=== PATIENT | female | born 1955 | race Caucasian/White ===

== ENCOUNTER 2017-09-19 09:41 | Outpatient (RCR) | payer OTHER ==
[2017-09-18 09:51] VITALS: BP 137/94
[2017-09-18 09:55] LABS: PLATELET COUNT, AUTOMATED 356 K/uL (150-450)
[~2017-09-19] VITALS: Ht 162.6 cm; Wt 75.5 kg
[~2017-09-19 09:41] MED LIST: ASPI-1471 PO; CHOL10005 PO; EPIN0.3P15 IM; ESTE625 PO; TRAM-420 PO; ULT PO
[2017-09-19 09:55] VITALS: BP 125/82
--- NOTE | 2017-09-19 10:38 | ONC Progress Note - NP.Halsey ---
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 Patient had a CBC drawn today which was reviewed. With the patient's last office visit she was noted to have tenderness on her left neck and was found to have an abscessed tooth. Patient previously was experiencing drenching night sweats. Today she reports that these of completely resolved. She denies any hot flashes. She has no other B symptoms such as a rash or lymphadenopathy. Labs reviewed today are centrally within normal limits. Patient has recently followed with primary care for upper respiratory infection. She reports that all family members experienced flulike symptoms followed by upper respiratory symptoms. She has been treated with antibiotics and feels that her symptoms have 90% resolved. She continues to have sinus drainage and occasional cough which is cause some discomfort in the chest. She denies any shortness of breath or difficulty breathing. She denies any sinus pain or pressure today. Patient has no concerns. Problem List (1) Atypical lymphocytosis Oncology History Patient is a post menopausal female who was followed by Dr. Garrett. She was found to have an abnormal CBC with a concern about the appearance of nucleated RBCs in her peripheral blood. Her CBC on August 24, 2015 did reveal white count of 4.9, hemoglobin 15, hematocrit 44.5, platelets 278,000. Her differential showed 26% atypical lymphocytes. In addition she presented with complaint of drenching night sweats, but no other B symptoms. CBC on August showed white count 4.2, hemoglobin 14.5, hematocrit 43.5, platelets 276, 000. Absolute neutrophil count was 2.2 and absolute lymphocytic count was 1.6. Flow cytometry of the peripheral blood came back negative for acute leukemia or any evidence of monoclonality or lymphoproliferative disorder, but it showed rare CD8 positive LGL T-cells (6% of the total leukocytes and 21% of the T-cells ). The patient had bone marrow aspiration biopsy done on October 28, 2015 which showed mildly hypocellular bone marrow for age, 15%, with trilineage hematopoiesis with mild osteoporosis. No evidence of lymphoma. Flow cytometry showed polyclonal T and B cell population with no evidence of malignant lymphoma. Repeat flow cytometry on February 28, 2016 did reveal small population of large granular lymphocyte-like CD8 positive T-cells with variable CD5 expression, representing approximately 6% of the leukocytes without flow cytometric evidence of acute leukemia or B cell lymphoproliferative disorder. It seemed that that clone is stable at 6%. CBC from 04-13-16 showed a white count of 3.9 but a differential was not completed. Patient did not want to repeat labs until scheduled unless her symptoms increase. She has some anxiety regarding the ongoing lymph nodes in her neck. Today on the right side and tender. Medical History Family History: FH: abdominal aortic aneurysm repair MOTHER, Age:82 FH: breast cancer PGM FH: depression MOTHER, Age:82 FH: hypothyroidism SISTER FH: thyroid disease MOTHER, Age:82 Stent FATHER, Age:83 Thrombocytosis SISTER Vascular disease MOTHER, Age:82 Psychosocial History Social History The patient is with no children. She is not currently employed. She never smoked. Denied any abuse of alcohol or drugs. Smoking History: No Smoking Status: Never Smoker Medications and Allergies Reported Medications Aspirin (ASPIR 81) 81 Mg Tablet.dr, 81 MG PO QDAY, TAB 03/15/17 Epinephrine (EPIPEN 2-RICHARD) 0.3 Mg/0.3 Ml Pen.injctr, 0.3 MG IM 08/21/14 Cholecalciferol (Vitamin D3) (VITAMIN D3) 1,000 Unit Tablet, 1 TAB PO QDAY 08/21/14 Allergies: Coded Allergies: Shellfish (Verified Allergy, Severe, HIVES, 11/24/15) aloe vera (Verified Allergy, Mild, 03/06/09) Uncoded Allergies: ALLEVE (Allergy, Mild, 03/06/09) CT DYE (Allergy, Mild, 03/06/09) Review of System/Physical Exam Review of Systems All Systems Reviewed/Normal: Yes, Except as Noted Respiratory: Positive for Cough HEENT: Nasal Discharge (ported to be clear) Physical Exam Vital Signs Temperature: 98.3 Pulse: 71 BP Systolic: 125 BP Diastolic: 82 Respiratory Rate: 16 O2 SAT: 96 O2 Delivery: Room Air Height (inches) 64.00 Weight lb: 168 Weight oz: 5.0 Weight Kg (Madhav): 76.35 Pain: 0 ECOG Score: 0 General: Stable, Well Developed, Well Nourished, Not In Acute Distress HEENT: No Trauma Neck: Supple Lungs: Clear to Auscultation Heart: Regular Rate, Regular Rhythm, No Gallops, No Murmurs Extremities: No Cyanosis, No Clubbing, No Edema Lymphadenopathy: No Cervical Psychiatric: Mood appears normal, Affect appears normal Skin: No Skin Rashes, No Bruising Diagnostic Studies Diagnostic Studies Laboratory Laboratory Tests 09/18/17 09:47 Laboratory Tests 09/18/17 09:47: White Blood Count 5.3, Red Blood Count 4.92, Hemoglobin 15.4, Hematocrit 45.0, Mean Corpuscular Volume 91.5, Mean Corpuscular Hemoglobin 31.3, Mean Corpuscular Hemoglobin Concent 34.2, Red Cell Distribution Width 14.6, Platelet Count 356, Mean Platelet Volume 7.4, Neutrophils (%) (Auto) 60.5, Lymphocytes (% ) (Auto) 28.7, Monocytes (%) (Auto) 7.9, Eosinophils (%) (Auto) 1.4, Basophils ( %) (Auto) 1.5, Nucleated RBC Relative Count (auto) 0.0, Neutrophils # (Auto) 3.2 , Lymphocytes # (Auto) 1.5, Monocytes # (Auto) 0.4, Eosinophils # (Auto) 0.1, Basophils # (Auto) 0.1, Nucleated RBC Absolute Count (auto) 0.00 Assessment and Plan Assessment & Plan 1. Atypical lymphocytosis associated with drenching night sweats initially. Patient did not have any evidence of lymphoproliferative disorder. Bone marrow aspiration biopsy done October 28, 2015 came back negative for lymphoproliferative disorder. There was polyclonal T and B cell population with no evidence of lymphoma by flow cytometry of the bone marrow. Her current CBC is very good now. Her white count total is 5.3. Previous labs have also been within normal limits. Patient denies any constitutional symptoms or B symptoms. Previous night sweats have completely resolved. She denies any hot flashes. She has had upper respiratory infection and has followed with primary care. She feels that this is resolving and she is almost back to baseline. Patient is compliant at following with primary care. At this time I believe that there is no reason to continue following with the patient. If she experiences abnormal labs drawn through primary care provider we are certainly happy to see her again. I would recommend repeating the CBC in 6 months. I personally spent a total of 20 minutes. Of that 20 minutes was counseling/ coordination of patient's care. See my note above for details. Copies to: JAMES GARRETT MD, NANCY J C PYTH[employer] DEVELOPER-BC, ONC Sep 19, 2017 10:38
== END 2017-09-26 09:01 | disposition home or self-care (01) ==
LOC: ONC 09:41
PROVIDERS: ATTEND Nurse Practitioner Family
DX: D72.820 Lymphocytosis (symptomatic) (principal); Z79.82 Long term (current) use of aspirin; Z79.899 Other long term (current) drug therapy; R05 Cough
CPT/HCPCS: 36415; 85025; 99212

== ENCOUNTER → 2017-10-22 | Outpatient (CLI) | payer OTHER | LOC: SPU 08:48 | PROVIDERS: ATTEND Emergency Medicine | DX: Z52.9 Donor of unspecified organ or tissue (principal) ==

== ENCOUNTER → 2018-03-28 | Outpatient (CLI) | payer OTHER ==
--- NOTE | 2018-04-01 08:30 | RADIOLOGY IMAGING REPORT ---
FACILITY: [facility] PATIENT NAME: ZACHARIAH MIRANDA : [id number] MR: [id number] V: [id number] EXAM DATE: [id number] ORDERING PHYSICIAN: JAMES GARRETT TECHNOLOGIST: Nohemi Horn PROCEDURE:BILATERAL DIGITAL SCREENING MAMMOGRAM WITH CAD ASSISTED INTERPRETATION & 3D TOMOSYNTHESIS COMPARISON:Prior mammograms 01/23/17 with priors to 09/14/2011. INDICATIONS:SCREENING FINDINGS: Breasts have mostly fatty parenchymal density. There are no mammographic findings concerning for malignancy. No significant change from priors. DIAGNOSTIC CATEGORY 1--NEGATIVE. RECOMMENDATIONS: ROUTINE MAMMOGRAM AND CLINICAL EVALUATION IN 1 YR. IMPRESSION: BIRADS 1: Negative. Dictated by: Bon Marley on 03/29/2018 at 10:11 Transcribed by: ÁNGELA on 03/29/2018 at 10:40 Approved by: Jose Francisco Jackson M.D. on 04/01/2018 at 8:29 [facility]
== END ==
LOC: MAMO 01:20
PROVIDERS: ATTEND Emergency Medicine
DX: Z12.31 Encounter for screening mammogram for malignant neoplasm of breast (principal)
CPT/HCPCS: 77063; 77067

== ENCOUNTER → 2018-07-17 | Outpatient (CLI) | payer OTHER ==
[2018-07-17 10:48] LABS: PLATELET COUNT, AUTOMATED 335 K/uL (150-450)
[2018-07-17 10:59] LABS: LDL CHOLESTEROL 177 mg/dl
== END ==
LOC: LAB 10:30
PROVIDERS: ATTEND Emergency Medicine
DX: E53.8 Deficiency of other specified B group vitamins (principal); E66.3 Overweight; Z68.25 Body mass index [BMI] 25.0-25.9, adult
CPT/HCPCS: 36415; 82040; 82247; 82310; 82374; 82435; 82465; 82565; 82607; 82947; 83718; 84075; 84132; 84155; 84295; 84443; 84450; 84460; 84478; 84520; 85025